=== PATIENT | male | born 1980 | race Caucasian/White ===

== ENCOUNTER 2017-04-29 14:51 | Emergency (ER) | payer OTHER ==
--- NOTE | 2017-04-29 17:23 | RAD ---
INDICATION: Left ankle injury. TECHNIQUE: 3 views of the left ankle were obtained. FINDINGS: There is soft tissue swelling present along the anterolateral aspect of the ankle. There is an oblique intra-articular fracture of the distal fibula. The distal fragment is displaced slightly posterior approximately 1 cortical diameter. There is suggestion of mild widening of the medial ankle mortise. No other fractures are seen. IMPRESSION: OBLIQUE INTRA-ARTICULAR SLIGHTLY DISPLACED FRACTURE OF THE DISTAL FIBULA WITH SUGGESTION OF MILD WIDENING OF THE ANKLE MORTISE.
[2017-04-29] MEDS ORDERED: oxyCODONE/Acetamin 5/325 MG* TAB PO ONE ×2 (17:33→18:38)
--- NOTE | 2017-04-29 18:06 | RAD ---
INDICATION: Left ankle fracture, leg pain. COMPARISON: Comparison is made with a prior x-ray study of the left ankle of the same day. TECHNIQUE: 2 views of the left lower leg were obtained. FINDINGS: Again note is made of an oblique intra-articular fracture of the distal fibula. The distal fragment is slightly displaced posterior approximately 1 cortical diameter. No additional fractures are seen. IMPRESSION: OBLIQUE SLIGHTLY DISPLACED INTRA-ARTICULAR FRACTURE OF THE DISTAL FIBULA. NO ADDITIONAL FRACTURE IS SEEN.
--- NOTE | 2017-04-29 18:39 | ED ---
Lower Extremity - HPI Summary HPI Summary: 36M presents with left ankle pain since last night. He states he was walking and twisted his ankle. He then went dancing last night and biked 6 miles today. He states he twisted it again this morning. He had a previous sprain ankle from a week ago when he injury it at the gym. He has been using ibuprofen for pain. He states his foot feels a little numb but states it may be due to him using ice on the area. He is able to ambulate on it it just feels unstable. - History of Current Complaint Chief Complaint: EDExtremityLower Stated Complaint: LEFT ANKLE PAIN Time Seen by Provider: 04/29/17 17:14 Pain Intensity: 8 - Allergies/Home Medications Allergies/Adverse Reactions: Allergies Allergy/AdvReac Type Severity Reaction Status Date / Time No Known Allergies Allergy Verified 07/15/16 07:43 PMH/Surg Hx/FS Hx/Imm Hx Endocrine/Hematology History: Denies: Hx Anticoagulant Therapy, Hx Diabetes Cardiovascular History: Denies: Hx Hypertension, Hx Pacemaker/ICD Respiratory History: Denies: Hx Asthma Musculoskeletal History: Denies: Hx Scoliosis Sensory History: Denies: Hx Contacts or Glasses, Hx Hearing Aid Opthamlomology History: Denies: Hx Contacts or Glasses Neurological History: Denies: Hx Headaches, Other Neuro Impairments/Disorders Psychiatric History: Denies: Hx Panic Disorder - Surgical History Surgery Procedure, Year, and Place: LEFT ARM ORIF X 2. RIGHT PINKY FINGER. WISDOM TEETH REMOVED Hx Anesthesia Reactions: No Infectious Disease History: No Infectious Disease History: Denies: Traveled Outside the [place] in Last 30 Days - Family History Known Family History: Positive: Cardiac Disease, Hypertension, Diabetes - Social History Alcohol Use: Weekly Alcohol Amount: 1 DAILY Substance Use Type: Reports: Marijuana Substance Use Comment - Amount & Last Used: weekly Smoking Status (MU): Former Smoker Amount Used/How Often: 1 CIGARETTE PER DAY X OFF AND ON X 8 YEARS Have You Smoked in the Last Year: No Review of Systems Negative: Fever Negative: Chest Pain Negative: Shortness Of Breath Positive: Myalgia - left ankle pain All Other Systems Reviewed And Are Negative: Yes Physical Exam Triage Information Reviewed: Yes Vital Signs On Initial Exam: Initial Vitals Temp Pulse Resp BP Pulse Ox 97.9 F 78 16 135/91 98 04/29/17 14:55 04/29/17 14:55 04/29/17 14:55 04/29/17 14:55 04/29/17 14:55 Vital Signs Reviewed: Yes Appearance: Positive: Well-Appearing Skin: Positive: Warm, Dry Head/Face: Positive: Normal Head/Face Inspection Eyes: Positive: Normal, Conjunctiva Clear Respiratory/Lung Sounds: Positive: Clear to Auscultation, Breath Sounds Present Cardiovascular: Positive: Normal, RRR Musculoskeletal: Positive: Limited @ - left ankle, Edema Left - lateral aspect of ankle, Other - good pulses, sensation grossly intact, capillary refill< 2secs , tenderness greatest over lateral aspect of left ankle Procedures - Splinting Location: left ankle Hand-Made Type: fiberglass Splint: sugar-tong Pre-Proc Neuro Vasc Exam: normal Post-Proc Neuro Vasc Exam: normal Diagnostics - Vital Signs Vital Signs Temp Pulse Resp BP Pulse Ox 04/29/17 17:56 18 04/29/17 14:55 97.9 F 78 16 135/91 98 - Laboratory Lab Statement: Any lab studies that have been ordered have been reviewed, and results considered in the medical decision making process. - Radiology ankle Xray Interpretation: Positive (See Comments) - IMPRESSION: OBLIQUE INTRA- ARTICULAR SLIGHTLY DISPLACED FRACTURE OF THE DISTAL FIBULA WITH SUGGESTION OF MILD WIDENING OF THE ANKLE MORTISE. Radiology Interpretation Completed By: Radiologist Lower Extremity Course/Dx - Course Course Of Treatment: 36M presents with left ankle pain since last night. He states he was walking and twisted his ankle. He then went dancing last night and biked 6 miles today. He states he twisted it again this morning. He had a previous sprain ankle from a week ago when he injury it at the gym. He has been using ibuprofen for pain. He states his foot feels a little numb but states it may be due to him using ice on the area. He is able to ambulate on it it just feels unstable. on exam edema noted to left ankle, neurovascular intact, tenderness greatest on lateral aspect of ankle. xray shows distal fibula fracture with mild widening of mortise joint. placed in posterior walking with sugar splint. told to follow up with ortho. patient understands and agrees with plan. - Diagnoses Differential Diagnosis/HQI/PQRI: Positive: Fracture (Closed), Sprain, Strain Provider Diagnoses: Closed left ankle fracture Discharge - Discharge Plan Condition: Good Disposition: HOME Prescriptions: oxyCODONE/Acetamin 5/325 MG* [Percocet 5/325 TAB*] 1 tab PO Q6H PRN #20 tab MDD 4 PRN Reason: Pain Patient Education Materials: Ankle Fracture (ED) Referrals: Non Staff,Doctor [Primary Care Provider] - Leslie Blanchard MD [Medical Doctor] - Additional Instructions: Use crutches and stay nonweight bearing Keep splint on area and keep dry Call ortho office tomorrow to set up appointment for follow up Use ibuprofen for pain every 6 hours and use narcotic for breakthrough pain Ice, elevate Return to ED if develop any new or worsening symptoms
[2017-04-29 19:18] VITALS: BP 121/84
== END 2017-04-29 19:17 | disposition home or self-care (01) ==
LOC: ED 14:51
DX: S82.892A Other fracture of left lower leg, initial encounter for closed fracture (principal); M25.572 Pain in left ankle and joints of left foot; Z87.891 Personal history of nicotine dependence; X50.9XXA Other and unspecified overexertion or strenuous movements or postures, initial encounter; Y93.9 Activity, unspecified; Y92.9 Unspecified place or not applicable
CPT/HCPCS: 99282; A9270-GY